=== PATIENT | female | born 1970 | race Caucasian/White ===

== ENCOUNTER 2017-06-13 06:19 | Emergency (ER) | payer OTHER ==
[~2017-06-13] VITALS: Ht 152.4 cm; Wt 68.0 kg
[~2017-06-13 06:19] MED LIST: BENADRYL25 MG PO; DIPHEN25 M1; GENTAMICIN SU3 MG/ML OPHTHALMIC; IRON325; MEDROLDOSEPACK PO; NOHOMEMEDICATIONS; NORCO 5-325 TA1 EACH PO; PREDNISONE 10 M10 M1 PO; PREDNISONE 20 M20 MG PO; PROVERA10 MG; PROVERA10 MG PO; TRIAMCINOLONE A15 G2 TP; [UNRECOGNIZED DRUG - OTHER]
[2017-06-13 06:54] LABS: URINE BILIRUBIN NEGATIVE (Negative); URINE BLOOD TRACE (Negative); URINE COLOR YELLOW; URINE GLUCOSE-RANDOM* NEGATIVE (Negative); URINE KETONES NEGATIVE (Negative); URINE LEUKOCYTES-REFLEX TRACE (Negative); URINE PROTEIN (DIPSTICK) NEGATIVE (Negative); URINE SPECIFIC GRAVITY 1.025 (1.003-1.035); URINE UROBILINOGEN 0.2 E.U./dl (0.2-1.0)
[2017-06-13 06:54] LABS: ABSOLUTE NEUTROPHILS 3.1 thou/uL (1.4-8.2); BASOPHILS 1.2 % (0.0-2.0); EOSINOPHILS 4.5 % (0.0-3.0); HEMATOCRIT 33.2 % (37.0-47.0); HEMOGLOBIN 10.7 gm/dL (12.0-15.0); LYMPHOCYTES 30.1 % (24.0-44.0); MANUAL DIFF NO; MCH 24.2 pg (26.0-34.0); MCHC 32.3 g/dL (28.0-37.0); MCV 74.8 fL (80.0-100.0); MONOCYTES 6.3 % (1.0-8.0); PLATELET COUNT 301 thou/uL (150-400); POLYS 57.9 % (36.0-66.0); RBC 4.43 mil/uL (4.20-5.00); RDW 18.9 % (10.5-14.5); WBC 5.3 thou/uL (4.0-11.0)
[2017-06-13 07:03] LABS: CALCIUM 8.7 mg/dL (8.5-10.1); CREATININE 0.8 mg/dL (0.6-1.0); POTASSIUM 4.2 mmol/L (3.5-5.1)
[2017-06-13] MEDS ORDERED: FLOMAX0.4 MG PO (08:35)
[2017-06-13] MEDS ORDERED: HYDROCODONE-AP1 EAC6 PO (08:35)
[2017-06-13] MEDS ORDERED: ONDANSETRON HCL4 M2 PO (08:58)
[2017-06-13 09:07] VITALS: BP 130/69
== END 2017-06-13 08:35 | disposition home or self-care (01) ==
LOC: ER 06:19
PROVIDERS: Emergency Medicine
DX: R10.9 Unspecified abdominal pain (principal); R31.9 Hematuria, unspecified; N80.9 Endometriosis, unspecified; F17.210 Nicotine dependence, cigarettes, uncomplicated; F10.99 Alcohol use, unspecified with unspecified alcohol-induced disorder; Z88.8 Allergy status to other drugs, medicaments and biological substances; Z88.6 Allergy status to analgesic agent

== ENCOUNTER 2017-08-08 09:28 | Emergency (ER) | payer OTHER ==
[~2017-08-08] VITALS: Ht 152.4 cm; Wt 68.0 kg
--- NOTE | ~2017-08-08 | EKG ---
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
[~2017-08-08 09:28] MED LIST changes: +FLOMAX0.4 MG PO; +HYDROCODONE-AP1 EAC6 PO; +ONDANSETRON HCL4 M2 PO
[2017-08-08 09:58] LABS: ABSOLUTE NEUTROPHILS 4.4 thou/uL (1.4-8.2); BASOPHILS 0.4 % (0.0-2.0); EOSINOPHILS 1.2 % (0.0-3.0); HEMATOCRIT 32.3 % (37.0-47.0); HEMOGLOBIN 10.6 gm/dL (12.0-15.0); LYMPHOCYTES 27.2 % (24.0-44.0); MCH 24.6 pg (26.0-34.0); MCHC 32.8 g/dL (28.0-37.0); MCV 74.9 fL (80.0-100.0); MONOCYTES 6.6 % (1.0-8.0); PLATELET COUNT 299 thou/uL (150-400); POLYS 64.6 % (36.0-66.0); RBC 4.31 mil/uL (4.20-5.00); RDW 18.5 % (10.5-14.5); WBC 6.8 thou/uL (4.0-11.0)
[2017-08-08 10:02] LABS: MANUAL DIFF NO
[2017-08-08 10:10] LABS: ANION GAP 9 mmol/L (7-16); BUN 10 mg/dL (7-18); CALCIUM 9.2 mg/dL (8.5-10.1); CHLORIDE 104 mmol/L (98-107); CO2 25 mmol/L (21-32); CREATININE 0.9 mg/dL (0.6-1.0); GLUCOSE 98 mg/dL (74-106); POTASSIUM 3.3 mmol/L (3.5-5.1); SODIUM 138 mmol/L (136-145)
[2017-08-08 10:18] LABS: TROPONIN-I < 0.04 ng/mL (<0.04-0.07)
[2017-08-08] MEDS ORDERED: ANTIVERT25 MG PO (12:22)
[2017-08-08] MEDS ORDERED: VALIUM5 MG PO (12:22)
[2017-08-08 13:05] VITALS: BP 121/72
== END 2017-08-08 13:06 | disposition home or self-care (01) ==
LOC: ER 09:28
PROVIDERS: Emergency Medicine
DX: N93.8 Other specified abnormal uterine and vaginal bleeding (principal); R42 Dizziness and giddiness; R55 Syncope and collapse; Z87.42 Personal history of other diseases of the female genital tract; F17.210 Nicotine dependence, cigarettes, uncomplicated; F10.99 Alcohol use, unspecified with unspecified alcohol-induced disorder; Z88.5 Allergy status to narcotic agent; Z88.8 Allergy status to other drugs, medicaments and biological substances

== ENCOUNTER 2018-04-19 20:35 | Emergency (ER) | payer OTHER ==
[~2018-04-19] VITALS: Ht 152.4 cm; Wt 65.8 kg
[~2018-04-19 20:35] MED LIST changes: +ANTIVERT25 MG PO; +VALIUM5 MG PO
[2018-04-19] MEDS ORDERED: NORCO 5-325 TA1 EACH PO (22:46)
[2018-04-19 23:16] VITALS: BP 131/82
== END 2018-04-19 23:16 | disposition home or self-care (01) ==
LOC: ER 20:35
DX: S92.351A Displaced fracture of fifth metatarsal bone, right foot, initial encounter for closed fracture (principal); W19.XXXA Unspecified fall, initial encounter; Y93.89 Activity, other specified; Y92.89 Other specified places as the place of occurrence of the external cause; Y99.8 Other external cause status; F17.210 Nicotine dependence, cigarettes, uncomplicated; Z88.8 Allergy status to other drugs, medicaments and biological substances

== ENCOUNTER 2018-08-20 10:00 | Emergency (ER) | payer OTHER ==
[~2018-08-20] VITALS: Ht 152.4 cm; Wt 65.8 kg
--- NOTE | ~2018-08-20 | EKG ---
[address] [address] ELECTROCARDIOGRAM REPORT Name: GERARDO KIM KYNatalie [id number] Admission: 08/20/18 Attend Phys: Discharge: 08/20/18 Date of : 68 Report #: [id number] THIS REPORT FOR: //name// [facility] ED Test Date: 2018-08-20 Test Time: 10:14:43 Pat Name: GERARDO KIM Department: Room: Gender: F [employer]: KEKE : 1970 Requested By: Jaja Gonzalez Order Number: [id number] MD: Anthony Quick Measurements Intervals [place] Rate: 70 P: 53 [place]: 137 QRS: 32 QRSD: 94 T: 44 QT: 429 QTc: 463 Interpretive Statements Sinus rhythm Compared to ECG 08/08/2017 09:34:38 Electronically Signed On 08-20-2018 13:07:53 CDT by Anthony Quick [email or web address] <ELECTRONICALLY SIGNED> By: Anthony Quick MD 08/20/18 1307 [id number] [id number] MD GEORGE Díaz
[2018-08-20 10:31] LABS: ABSOLUTE NEUTROPHILS 3.4 thou/uL (1.4-8.2); EOSINOPHILS 5.3 % (0.0-3.0); HEMATOCRIT 36.3 % (37.0-47.0); HEMOGLOBIN 11.5 gm/dL (12.0-15.0); LYMPHOCYTES 30.7 % (24.0-44.0); MCH 24.4 pg (26.0-34.0); MCHC 31.8 g/dL (28.0-37.0); MCV 76.7 fL (80.0-100.0); MONOCYTES 6.8 % (1.0-8.0); PLATELET COUNT 326 thou/uL (150-400); POLYS 56.2 % (36.0-66.0); RBC 4.73 mil/uL (4.20-5.00); RDW 18.8 % (10.5-14.5)
[2018-08-20 10:37] LABS: ANION GAP 9 mmol/L (7-16); BUN 13 mg/dL (7-18); CHLORIDE 106 mmol/L (98-107); CO2 25 mmol/L (21-32); CREATININE 0.8 mg/dL (0.6-1.0); GLUCOSE 113 mg/dL (74-106); POTASSIUM 3.8 mmol/L (3.5-5.1); SODIUM 140 mmol/L (136-145)
[2018-08-20 10:46] LABS: ALBUMIN 3.6 g/dL (3.4-5.0); SGOT 24 U/L (15-37); SGPT 33 U/L (30-65); TOTAL BILIRUBIN 0.3 mg/dL (<0.1-1.0); TOTAL PROTEIN 7.5 g/dL (6.4-8.2); TROPONIN-I <0.06 ng/mL (<0.06)
[2018-08-20 10:52] LABS: URINE BILIRUBIN NEGATIVE (Negative); URINE BLOOD NEGATIVE (Negative); URINE COLOR YELLOW; URINE GLUCOSE-RANDOM* NEGATIVE (Negative); URINE KETONES NEGATIVE (Negative); URINE LEUKOCYTES-REFLEX NEGATIVE (Negative); URINE NITRITE-REFLEX NEGATIVE (Negative); URINE PROTEIN (DIPSTICK) NEGATIVE (Negative); URINE SPECIFIC GRAVITY 1.025 (1.005-1.035); URINE UROBILINOGEN 0.2 E.U./dl (0.2-1.0)
[2018-08-20 10:53] LABS: URINE CLARITY HAZY
[2018-08-20 11:19] LABS: ANISOCYTOSIS SLIGHT; PLATELET ESTIMATE NORMAL
[2018-08-20 11:38] LABS: AMP/METHAMP Negative (Negative); BARBITURATES Negative (Negative); BENZODIAZEPINES POSITIVE (Negative); COCAINE POSITIVE (Negative); METHADONE Negative (Negative); OPIATES Negative (Negative); PCP Negative (Negative)
[2018-08-20] MEDS ORDERED: MOBIC7.5 MG PO (11:44)
[2018-08-20] MEDS ORDERED: TRAZODONE HCL50 MG PO (11:44)
[2018-08-20 11:56] VITALS: BP 110/71
== END 2018-08-20 12:02 | disposition home or self-care (01) ==
LOC: ER 10:00
PROVIDERS: Nurse Practitioner Family
DX: S46.912A Strain of unspecified muscle, fascia and tendon at shoulder and upper arm level, left arm, initial encounter (principal); F14.10 Cocaine abuse, uncomplicated; F41.9 Anxiety disorder, unspecified; R20.2 Paresthesia of skin; X58.XXXA Exposure to other specified factors, initial encounter; Y93.89 Activity, other specified; Y92.89 Other specified places as the place of occurrence of the external cause; Y99.8 Other external cause status

== ENCOUNTER 2019-02-23 03:03 | Emergency (ER) | payer OTHER ==
[~2019-02-23] VITALS: Ht 152.4 cm; Wt 68.0 kg
[~2019-02-23 03:03] MED LIST changes: +MOBIC7.5 MG PO; +TRAZODONE HCL50 MG PO
[2019-02-23 03:19] LABS: URINE BILIRUBIN NEGATIVE (Negative); URINE BLOOD 1+ (Negative); URINE CLARITY CLEAR; URINE COLOR YELLOW; URINE GLUCOSE-RANDOM* NEGATIVE (Negative); URINE KETONES 1+ (Negative); URINE LEUKOCYTES-REFLEX NEGATIVE (Negative); URINE NITRITE-REFLEX NEGATIVE (Negative); URINE PROTEIN (DIPSTICK) NEGATIVE (Negative); URINE SPECIFIC GRAVITY 1.015 (1.005-1.035); URINE UROBILINOGEN 0.2 E.U./dl (0.2-1.0)
[2019-02-23 03:24] LABS: BACTERIA-REFLEX 1-9 Few /HPF (None Seen); SQUAMOUS 4-10 Moderate /LPF (0-3); URINE RBC 3-10 Few /HPF (0-2); URINE WBC-REFLEX 0-5 Rare /HPF (0-5)
[2019-02-23 03:25] LABS: CASTS None Seen /LPF (None Seen); CRYSTALS None Seen /LPF (None Seen); MUCUS 0-3 Light strn/LPF (None Seen)
[2019-02-23 03:36] LABS: BASOPHILS 0.5 % (0.0-2.0); EOSINOPHILS 2.5 % (0.0-3.0); HEMATOCRIT 40.9 % (37.0-47.0); HEMOGLOBIN 14.3 gm/dL (12.0-15.0); LYMPHOCYTES 20.5 % (24.0-44.0); MCH 30.1 pg (26.0-34.0); MCV 86.2 fL (80.0-100.0); MONOCYTES 7.5 % (1.0-8.0); PLATELET COUNT 246 thou/uL (150-400); RBC 4.74 mil/uL (4.20-5.00); RDW 16.2 % (10.5-14.5); WBC 8.6 thou/uL (4.0-11.0)
[2019-02-23 03:50] LABS: CALCIUM 8.7 mg/dL (8.5-10.1); CREATININE 0.6 mg/dL (0.6-1.0); POTASSIUM 3.4 mmol/L (3.5-5.1)
[2019-02-23 03:57] LABS: ALBUMIN 3.5 g/dL (3.4-5.0); TOTAL BILIRUBIN 0.6 mg/dL (<0.1-1.0); TOTAL PROTEIN 7.7 g/dL (6.4-8.2)
[2019-02-23] MEDS ORDERED: ULTRAM 50MG TAB50 MG PO (05:48)
[2019-02-23] MEDS ORDERED: NORFLEX100 MG PO (05:48)
[2019-02-23] MEDS ORDERED: NAPROSYN500 MG PO (05:48)
[2019-02-23 05:55] VITALS: BP 135/67
== END 2019-02-23 05:56 | disposition home or self-care (01) ==
LOC: ER 03:03
PROVIDERS: Emergency Medicine
DX: R10.31 Right lower quadrant pain (principal); R42 Dizziness and giddiness; N80.9 Endometriosis, unspecified

== ENCOUNTER 2020-11-21 09:48 | Emergency (ER) | payer OTHER ==
[~2020-11-21] VITALS: Ht 152.4 cm; Wt 68.0 kg
[~2020-11-21 09:48] MED LIST changes: +NAPROSYN500 MG PO; +NORFLEX100 MG PO; +ULTRAM 50MG TAB50 MG PO
[2020-11-21 11:11] VITALS: BP 131/80
[2020-11-21 11:41] LABS: URINE BILIRUBIN NEGATIVE (Negative); URINE BLOOD TRACE (Negative); URINE CLARITY CLEAR; URINE COLOR YELLOW; URINE GLUCOSE-RANDOM* NEGATIVE (Negative); URINE KETONES NEGATIVE (Negative); URINE LEUKOCYTES-REFLEX 3+ (Negative); URINE NITRITE-REFLEX NEGATIVE (Negative); URINE PROTEIN (DIPSTICK) NEGATIVE (Negative); URINE SPECIFIC GRAVITY 1.015 (1.005-1.035); URINE UROBILINOGEN 0.2 E.U./dl (0.2-1.0)
[2020-11-21 11:44] LABS: ABSOLUTE NEUTROPHILS 11.2 thou/uL (1.4-8.2); BASOPHILS 0.3 % (0.0-2.0); EOSINOPHILS 0.3 % (0.0-3.0); HEMATOCRIT 43.8 % (37.0-47.0); HEMOGLOBIN 14.5 gm/dL (12.0-15.0); LYMPHOCYTES 11.1 % (24.0-44.0); MCH 30.4 pg (26.0-34.0); MCHC 33.2 g/dL (28.0-37.0); MCV 91.6 fL (80.0-100.0); MONOCYTES 1.8 % (1.0-8.0); PLATELET COUNT 284 thou/uL (150-400); POLYS 86.5 % (36.0-66.0); RBC 4.78 mil/uL (4.20-5.00)
[2020-11-21 11:52] LABS: CASTS None Seen /LPF (None Seen); CRYSTALS None Seen /LPF (None Seen); SQUAMOUS 4-10 Moderate /LPF (0-3)
[2020-11-21 11:53] LABS: CALCIUM 9.8 mg/dL (8.5-10.1); CREATININE 0.8 mg/dL (0.6-1.0); POTASSIUM 3.8 mmol/L (3.5-5.1)
[2020-11-21 11:53] LABS: URINE RBC 0-2 Rare /HPF (0-2)
[2020-11-21 11:59] LABS: TOTAL BILIRUBIN 0.3 mg/dL (0.2-1.0); TOTAL PROTEIN 7.5 g/dL (6.4-8.2)
[2020-11-21] MEDS ORDERED: ZANAFLEX4 MG PO (12:58)
[2020-11-21] MEDS ORDERED: HYDROCODON-ACE1 EAC7 PO (12:58)
[2020-11-21] MEDS ORDERED: KEFLEX500 M1 PO (12:59)
== END 2020-11-21 11:45 | disposition home or self-care (01) ==
LOC: ER 09:48
PROVIDERS: Nurse Practitioner
DX: N39.0 Urinary tract infection, site not specified (principal); M54.16 Radiculopathy, lumbar region; Z98.51 Tubal ligation status; Z79.899 Other long term (current) drug therapy

== ENCOUNTER 2020-12-01 17:11 | Emergency (ER) | payer OTHER ==
[~2020-12-01] VITALS: Ht 152.4 cm; Wt 73.5 kg
[~2020-12-01 17:11] MED LIST changes: -PEPCID AC20 MG PO; -PREDNISONE 20 M20 M1 PO
[2020-12-01] MEDS ORDERED: PREDNISONE 20 M20 M1 PO (21:13)
[2020-12-01] MEDS ORDERED: BENADRYL25 MG PO (21:13)
[2020-12-01] MEDS ORDERED: PEPCID AC20 MG PO (21:13)
[2020-12-01 21:46] VITALS: BP 123/77
== END 2020-12-01 21:46 | disposition home or self-care (01) ==
LOC: ER 17:11
DX: T78.40XA Allergy, unspecified, initial encounter (principal); L50.9 Urticaria, unspecified; Z79.899 Other long term (current) drug therapy; Y92.89 Other specified places as the place of occurrence of the external cause

== ENCOUNTER → 2020-12-01 | Outpatient (CLI) | payer OTHER ==
[~2020-12-01] MED LIST changes: +HYDROCODON-ACE1 EAC7 PO; +KEFLEX500 M1 PO; +PEPCID AC20 MG PO; +PREDNISONE 20 M20 M1 PO; +ZANAFLEX4 MG PO
== END ==
LOC: MRI 14:55
PROVIDERS: ATTEND Otolaryngology
DX: H90.5 Unspecified sensorineural hearing loss (principal)

== ENCOUNTER → 2021-01-10 | Outpatient (CLI) | payer OTHER ==
[~2021-01-10] MED LIST changes: +PEPCID AC20 MG PO; +PREDNISONE 20 M20 M1 PO
== END ==
LOC: MRI 09:05
DX: M47.27 Other spondylosis with radiculopathy, lumbosacral region (principal); R29.2 Abnormal reflex; M54.5 Low back pain; M48.07 Spinal stenosis, lumbosacral region; M48.02 Spinal stenosis, cervical region